=== PATIENT | female | born 1945 | race Caucasian/White ===

== ENCOUNTER 2016-04-03 07:15 | Emergency (ER) | payer MEDICARE ==
[2016-04-03 07:42] VITALS: BP 123/70
--- NOTE | 2016-04-03 08:19 | UC ---
Cardiac HPI - HPI Summary HPI Summary: The patient comes in today for: 1. Right-sided chest pain: Onset: one week ago. Palliative/provocative: Sometimes the pain is gone in certain positions ( sitting, straight up and laying out flat). Deep breath makes the pain worse. Breathing shallowly will help. Quality: Dull. Region: Right side Severity: 0/10 sitting. Moving makes the pain go up to 5/10 Time: Comes and goes. Associated symptoms: She wants to make sure that she does not have pneumoia or anything contagious. FEvers: None. Cancers: Ovarian cancer with metastasis with de-bulking surgery and chemotherapy with remission 2016. Shortness of breath: None. * - History of Current Complaint Chief Complaint: UCRespiratory Stated Complaint: PAINFUL DEEP BREATHING Time Seen by Provider: 04/03/16 08:12 Hx Obtained From: Patient, Family/Sales Lead - Allergy/Home Medications Allergies/Adverse Reactions: Allergies Allergy/AdvReac Type Severity Reaction Status Date / Time No Known Allergies Allergy Verified 04/03/16 07:33 Home Medications: Home Medications Dabigatran CAP(NF) [Pradaxa CAP(NF)] 150 mg PO BID 04/03/16 [History Confirmed 04/03/16] Metoprolol Tartrate TAB* [Lopressor TAB*] 150 mg PO BID 04/03/16 [History Confirmed 04/03/16] Nortriptyline CAP* [Pamelor CAP*] 25 mg PO BEDTIME 04/03/16 [History Confirmed 04/03/16] PMH/Surg Hx/FS Hx/Imm Hx Previously Healthy: No - Ovarian cancer. Endocrine History Of: Reports: Diabetes - She states that she is type II, Off medications at this time. Denies: Thyroid Disease, Hyperthyroidism, Hypothyroidism, Dyslipidemia Cardiovascular History Of: Reports: Cardiac Disorders - A. Fib., Hypertension, Atrial Fibrillation Denies: Pacemaker/ICD, Myocardial Infarction, Congestive Heart Failure, Deep Vein Thrombosis, Bleeding Disorders Respiratory History Of: Denies: COPD, Asthma, Bronchitis, Pneumonia, Pulmonary Embolism GI/ History Of: Denies: Gastroesophageal Reflux, Ulcer, Gastrointestinal Bleed, Gall Bladder Disease, Kidney Stones, Diverticulitis, Renal Disease, Urosepsis Neurological History Of: Denies: TIA, CVA, Dementia, Seizures, Migraine Psychological History Of: Denies: Anxiety, Depression, Bipolar Disorder, Schizophrenia, Post Traumatic Stress Disorder Cancer History Of: Denies: Lung Cancer, Colorectal Cancer, Breast Cancer, Prostate Cancer, Cervical Cancer Other History Of: Anticoagulant Therapy - On Pradaxa. Negative For: HIV, Hepatitis B, Hepatitis C - Surgical History Surgical History: Yes Surgery Procedure, Year, and Place: Hysterectomy, 2014, [place]; Appendectomy, Spleenectomy, Partial Sigmoid Colonectomy, and Omentumectomy, 2014, [place] - Family History Known Family History: Negative: Cardiac Disease, Hypertension - Social History Occupation: Employed Part-time, Retired Alcohol Use: Rare Substance Use Type: None Smoking Status (MU): Former Smoker - Immunization History Most Recent Influenza Vaccination: December 2015 Most Recent Tetanus Shot: OVER 5 YEARS Most Recent Pneumonia Vaccination: 2015 Review of Systems Constitutional: Negative Skin: Negative Eyes: Negative ENT: Negative Respiratory: Negative Cardiovascular: Chest Pain Gastrointestinal: Negative Genitourinary: Negative All Other Systems Reviewed And Are Negative: Yes Physical Exam Triage Information Reviewed: Yes Appearance: Well-Appearing, No Pain Distress, Well-Nourished Vital Signs: Initial Vital Signs Temp 97.9 F 04/03/16 07:30 Pulse 66 04/03/16 07:30 Resp 16 04/03/16 07:30 BP 123/70 04/03/16 07:30 Pulse Ox 100 04/03/16 07:30 Vital Signs Reviewed: Yes Eyes: Positive: Conjunctiva Clear. Negative: Discharge ENT: Positive: Normal ENT inspection, Pharynx normal. Negative: Pharyngeal erythema, Nasal congestion, Nasal drainage, TM bulging, TM dull, TM red, Tonsillar swelling, Tonsillar exudate Dental: Negative: Gross Decay/Caries @, Dental Fracture @ Neck: Positive: Supple, Nontender, No Lymphadenopathy. Negative: Nuchal Rigidity Respiratory: Positive: Chest non-tender, Lungs clear, No respiratory distress, No accessory muscle use. Negative: Crackles, Stridor Cardiovascular: Positive: RRR, No Murmur Abdomen Description: Positive: Nontender, No Organomegaly, Soft, Other: - Patient was a bit difficult to assess. When I pushed on her right upper quadrant , she would grimace, but state that she did not have any pain.. Negative: Guarding Musculoskeletal: Positive: Strength Intact, Other: - She has some tenderness to palpation of her right lower, lateral rib cage, but the patient states that this is not the pain that she is having and states that there is some tenderness along the right anterior lower rib margin. Neurological: Positive: Alert, Muscle Tone Normal Psychological: Positive: Age Appropriate Behavior, Consolable Skin: Negative: rashes, breakdown Diagnostics - Radiology No standard instances Xray Interpretation: Positive (See Comments) - IMPRESSION: Elevated right hemidiaphragm with bibasilar atelectasis. Radiology Interpretation Completed By: Radiologist - Assessment/Plan Course Of Treatment: Patient was told of the elevated right hemidiaphram and and atelectasis. She was told that I did not have a definite cause for her right-sided chest pain and recommended that she go to the ER. She was not interseted in doing that at this time. - Clinical Impression Provider Diagnoses: Chest pain. right atelectasis. Elevation of the right hemidiaphragm. Discharge - Discharge Plan Condition: Stable Disposition: AGAINST MEDICAL ADVICE Patient Education Materials: Atelectasis (ED) Referrals: Cindy Rodarte MD [Primary Care Provider] - As Soon As Possible (If you are not going to the ER for further evaluation, please see your primary care provider as soon as you can. )
--- NOTE | 2016-04-03 08:45 | RAD ---
Indication: Pleuritic chest pain, atrial fibrillation. 2 views of the chest including dual energy PA views demonstrate no mediastinal shift. Heart is of normal size and configuration. Bibasilar atelectasis is noted. No pneumonia is identified. IMPRESSION: Elevated right hemidiaphragm with bibasilar atelectasis.
== END 2016-04-03 09:15 | disposition left against medical advice (07) ==
LOC: UCCORT 07:15
DX: R07.89 Other chest pain (principal); J98.11 Atelectasis; Q79.1 Other congenital malformations of diaphragm; I48.91 Unspecified atrial fibrillation; Z79.01 Long term (current) use of anticoagulants; I10 Essential (primary) hypertension; Z87.891 Personal history of nicotine dependence
CPT/HCPCS: 71020; 99212; G0463

== ENCOUNTER 2017-02-22 09:51 | Emergency (ER) | payer MEDICARE ==
[2017-02-22 11:06] VITALS: BP 156/78
--- NOTE | 2017-02-22 11:35 | UC ---
Respiratory Complaint HPI - HPI Summary HPI Summary: Pt c/o cough, chest congestion, nasal congestion and sinus pressure and pain X 1 week. Pt is currently in treatment for ovarian cancer and had first cycle of chemotherapy in January, due to have cycle 2 on 02/28/17 - History of Current Complaint Chief Complaint: UCRespiratory Stated Complaint: RESPIRATORY Time Seen by Provider: 02/22/17 11:22 Hx Obtained From: Patient Hx Last Menstrual Period: n/a ?: No Onset/Duration: Gradual Onset, Lasting Days, Still Present Timing: Constant Severity Initially: Mild Severity Currently: Mild Character: Cough: Nonproductive Aggravating Factors: Deep Breaths, Recumbent Position Alleviating Factors: Nothing Associated Signs And Symptoms: Positive: URI, Nasal Congestion - Risk Factors Pulmonary Embolism Risk Factors: Malignancy - ovarian cancer Cardiac Risk Factors: Negative Pseudomonas Risk Factors: Negative Tuberculosis Risk Factors: Immune Deficienty - currently beign treated for ovarian cancer - Allergies/Home Medications Allergies/Adverse Reactions: Allergies Allergy/AdvReac Type Severity Reaction Status Date / Time No Known Allergies Allergy Verified 02/22/17 11:00 Home Medications: Home Medications Apixaban* [Eliquis*] 5 mg PO BID 02/22/17 [History Confirmed 02/22/17] Gabapentin CAP(*) [Neurontin 300 CAP(*)] 600 mg PO TID 02/22/17 [History Confirmed 02/22/17] PMH/Surg Hx/FS Hx/Imm Hx Previously Healthy: No - ovarian cancer Other History Of: Anticoagulant Therapy - On Pradaxa. Negative For: HIV, Hepatitis B, Hepatitis C - Surgical History Surgical History: Yes Surgery Procedure, Year, and Place: Hysterectomy, 2014, [place]; Appendectomy, Spleenectomy, Partial Sigmoid Colonectomy, and Omentumectomy, 2014, [facility] - Family History Known Family History: Negative: Cardiac Disease, Hypertension - Social History Occupation: Retired Lives: With Family Alcohol Use: Rare Substance Use Type: None Smoking Status (MU): Former Smoker Type: Cigarettes Length of Time of Smoking/Using Tobacco: Some Day Smoker for 20 Years When Did the Patient Quit Smoking/Using Tobacco: 1992 - Immunization History Most Recent Influenza Vaccination: December 2016 Most Recent Tetanus Shot: OVER 5 YEARS Most Recent Pneumonia Vaccination: 2015 Review of Systems Constitutional: Fatigue Skin: Negative Eyes: Negative ENT: Sinus Congestion, Sinus Pain/Tenderness Respiratory: Cough Cardiovascular: Negative Gastrointestinal: Negative Genitourinary: Negative Motor: Negative Neurovascular: Negative Musculoskeletal: Negative Neurological: Negative Psychological: Negative Is Patient Immunocompromised?: No All Other Systems Reviewed And Are Negative: Yes Physical Exam Triage Information Reviewed: Yes Appearance: Well-Appearing Vital Signs: Initial Vital Signs Temp 98.1 F 02/22/17 10:56 Pulse 76 02/22/17 10:56 Resp 16 02/22/17 10:56 BP 156/78 02/22/17 10:56 Pulse Ox 96 02/22/17 10:56 Vital Signs Reviewed: Yes Eye Exam: Normal ENT: Positive: Nasal congestion, Sinus tenderness Dental Exam: Normal Neck exam: Normal Respiratory Exam: Normal Cardiovascular Exam: Normal Musculoskeletal Exam: Normal Neurological Exam: Normal Psychological Exam: Normal Skin Exam: Normal UC Diagnostic Evaluation - Laboratory O2 Sat by Pulse Oximetry: 96 Respiratory Course/Dx - Differential Dx/Diagnosis Differential Diagnosis/HQI/PQRI: Bronchitis, Pulmonary Embolism, Other - pneumonia Provider Diagnoses: bronchitis Discharge - Discharge Plan Condition: Stable Disposition: HOME Prescriptions: Azithromycin TAB* [Zithromax TAB (Z-NICHOLAS) 250 mg #6 tabs] 2 tab PO .TODAY, THEN 1 DAILY #1 nicholas Benzonatate CAP* [Tessalon 100 MG CAP*] 100 mg PO Q8H PRN #30 cap PRN Reason: Cough Patient Education Materials: Acute Bronchitis (ED) Referrals: Cindy Rodarte MD [Primary Care Provider] - If Needed
== END 2017-02-22 11:41 | disposition home or self-care (01) ==
LOC: UCCORT 09:51
DX: J40 Bronchitis, not specified as acute or chronic (principal)
CPT/HCPCS: 99212; G0463

== ENCOUNTER 2017-10-02 13:36 | Emergency (ER) | payer MEDICARE ==
[2017-10-02 14:09] VITALS: BP 150/73
--- NOTE | 2017-10-02 14:22 | UC ---
Back Pain HPI - HPI Summary HPI Summary: right mid to lower back pain x 3 days no know injury increase pain with movement , better with rest, no dysuria , no fever, chills - History of Current Complaint Chief Complaint: UCBackPain Stated Complaint: BACK PAIN Time Seen by Provider: 10/02/17 13:53 Hx Obtained From: Patient Hx Last Menstrual Period: n/a Onset/Duration: Gradual Onset, Lasting Days - 3, Still Present Timing: Constant Severity Initially: Moderate Severity Currently: Moderate Pain Intensity: 4 Back Pain: Is Discrete @ - right lower back Character: Aching Aggravating Factor(s): Movement, Bending, Cough Alleviating Factor(s): Rest, Heat Associated Signs And Symptoms: Negative: Swelling, Redness, Bruising, Fever, Weakness, Numbness, Tingling, Abdominal Pain, Flank Pain, Bladder Incontinence, Bowel Incontinence, Weight Loss, Pain with Weight Bearing - Allergies/Home Medications Allergies/Adverse Reactions: Allergies Allergy/AdvReac Type Severity Reaction Status Date / Time No Known Allergies Allergy Verified 10/02/17 14:05 Home Medications: Home Medications Rivaroxaban TAB(*) [Xarelto 20 mg] 20 mg PO DAILY 10/02/17 [History Confirmed ] predniSONE TAB* [Deltasone 20 MG TAB*] 40 mg PO DAILY 10/02/17 [History Confirmed 10/02/17] PMH/Surg Hx/FS Hx/Imm Hx Cardiovascular History: Cardiac Disease, Hypertension, Atrial Fibrillation Other History Of: Anticoagulant Therapy - On Pradaxa. Negative For: HIV, Hepatitis B, Hepatitis C - Surgical History Surgical History: Yes Surgery Procedure, Year, and Place: Hysterectomy, 2014, [place]; Appendectomy, Spleenectomy, Partial Sigmoid Colonectomy, and Omentumectomy, 2014, [facility] - Family History Known Family History: Negative: Cardiac Disease, Hypertension - Social History Alcohol Use: Rare Substance Use Type: None Smoking Status (MU): Former Smoker Type: Cigarettes Length of Time of Smoking/Using Tobacco: Some Day Smoker for 20 Years When Did the Patient Quit Smoking/Using Tobacco: 1992 - Immunization History Most Recent Influenza Vaccination: December 2016 Most Recent Tetanus Shot: OVER 5 YEARS Most Recent Pneumonia Vaccination: 2015 Review of Systems Constitutional: Negative Skin: Negative Eyes: Negative ENT: Negative Respiratory: Negative Cardiovascular: Negative Gastrointestinal: Negative Genitourinary: Negative Is Patient Immunocompromised?: No All Other Systems Reviewed And Are Negative: Yes Physical Exam Triage Information Reviewed: Yes Appearance: Well-Appearing, No Pain Distress, Well-Nourished Vital Signs: Initial Vital Signs Temp 98.1 F 10/02/17 14:01 Pulse 66 10/02/17 14:01 Resp 15 10/02/17 14:01 BP 150/73 10/02/17 14:01 Pulse Ox 98 10/02/17 14:01 Vital Signs Reviewed: Yes Eyes: Positive: Conjunctiva Clear ENT Exam: Normal ENT: Positive: Normal ENT inspection, Hearing grossly normal, Pharynx normal Neck exam: Normal Neck: Positive: Supple Respiratory: Positive: Chest non-tender, Lungs clear, Normal breath sounds Cardiovascular: Positive: RRR, No Murmur, Pulses Normal Abdomen Description: Positive: Nontender, Soft. Negative: CVA Tenderness (R), CVA Tenderness (L), Distended, Guarding Bowel Sounds: Positive: Present Musculoskeletal: Positive: Other: - lower back: no swelling, no erythema, no tenderness , good ROM on flexion and extension Skin Exam: Normal Back Pain Course/Dx - Differential Dx/Diagnosis Provider Diagnoses: lower back pain. UTI Discharge - Sign-Out/Discharge Documenting (check all that apply): Patient Departure - Discharge Plan Condition: Stable Disposition: HOME Prescriptions: Nitrofurantoin Monohyd/M-Cryst [Macrobid 100 mg Capsule] 100 mg PO BID #14 cap Patient Education Materials: Urinary Tract Infection in Women (ED), Back Pain ( ED) Referrals: Cindy Rodarte MD [Primary Care Provider] - 7 Days - Billing Disposition and Condition Condition: STABLE Disposition: Home
== END 2017-10-02 14:25 | disposition home or self-care (01) ==
LOC: UCCORT 13:36
DX: M54.5 Low back pain (principal); N39.0 Urinary tract infection, site not specified; I10 Essential (primary) hypertension; I48.91 Unspecified atrial fibrillation; Z79.01 Long term (current) use of anticoagulants; Z87.891 Personal history of nicotine dependence; Z90.710 Acquired absence of both cervix and uterus
CPT/HCPCS: 81003; 87086; 99212; G0463

== ENCOUNTER 2022-02-07 21:41 | Inpatient (IN) ==
[2022-02-07 22:45] LABS: Hematocrit 30 % (35-47); Hemoglobin 9.7 g/dL (12.0-16.0); Mean Corpuscular HGB Conc 32 g/dL (31-36); Mean Corpuscular Hemoglobin 34 pg (27-31); Mean Corpuscular Volume 104 fL (80-97); Mean Platelet Volume 8.6 fL (7.4-10.4); Platelet Count 254 10^3/uL (150-450); Red Cell Distribution Width 19 % (10-15); White Blood Count 19.1 10^3/uL (3.5-10.8)
[2022-02-07 23:16] LABS: High Sens Troponin Baseline 14 pg/mL (<15)
[2022-02-07 23:29] LABS: ALT 54 U/L (7-52); AST 89 U/L (13-39); Albumin 3.3 g/dL (3.2-5.2); Albumin/Globulin Ratio 1.2 (1-3); Alcohol, S < 13 mg/dL (<13); Alkaline Phosphatase 352 U/L (35-149); Anion Gap 10 mmol/L (2-11); Blood Urea Nitrogen 20 mg/dL (6-24); CO2 Carbon Dioxide 30 mmol/L (22-32); Calcium 8.6 mg/dL (8.6-10.3); Chloride 95 mmol/L (101-111); Globulin 2.7 g/dL (2-4); Glucose 297 mg/dL (70-100); Magnesium 1.6 mg/dL (1.9-2.7); Potassium 4.6 mmol/L (3.5-5.0); Sodium 135 mmol/L (135-145)
[2022-02-07 23:39] LABS: ABS Basophils 0.1 10^3/ul (0-0.2); ABS Lymphocytes 1.2 10^3/ul (1.0-4.8); ABS Neutrophils 13.7 10^3/ul (1.5-7.7); Lymphocyte % 6.4 %; Nucleated Red Blood Cells % 0.1
[2022-02-07 23:44] LABS: TSH Ultra Thyroid Stim Horm 0.55 mcIU/mL (0.34-5.60)
[2022-02-08 00:30] LABS: Urine Appearance Cloudy; Urine Bilirubin Negative (Negative); Urine Blood 1+ (Negative); Urine Color Yellow; Urine Glucose 1+(50 mg/dL) (Negative); Urine Ketones Negative (Negative); Urine Nitrite Negative (Negative); Urine Protein 2+(100 mg/dL) (Negative); Urine Specific Gravity 1.023 (1.002-1.030); Urine Urobilinogen Negative (Negative)
[2022-02-08 00:35] LABS: Urine Bacteria 1+ (Absent); Urine Red Blood Cell 3+(>10/hpf) (Absent); Urine Squamous Epithelial Cell Present (Absent); Urine White Blood Cell Trace(0-5/hpf) (Absent)
[2022-02-08 03:12] LABS: C Reactive Protein 331.24 mg/L (<8.01)
[2022-02-08 03:39] LABS: Folate 13.39 ng/mL (5.90-24.80); Vitamin B12 273 pg/mL (180-914)
[2022-02-08] MEDS: cefTRIAXone 1 gm/50 mL D5W 1 GM/50 ML BAG IV SCH (03:52)
[2022-02-08] MEDS ORDERED: Magnesium Sulfate IV 3 GM in NS 0.9% 100 ml BAG 100 ML IVPB ONE (04:29)
[2022-02-08] MEDS ORDERED: Dextrose 50% Syringe 50 ml 25 GM/50 ML SYRINGE IV PUSH PRN (05:51)
[2022-02-08 07:00] LABS: Hematocrit 28 % (35-47); Hemoglobin 9.3 g/dL (12.0-16.0); Mean Corpuscular HGB Conc 33 g/dL (31-36); Mean Corpuscular Hemoglobin 35 pg (27-31); Mean Corpuscular Volume 105 fL (80-97); Mean Platelet Volume 8.8 fL (7.4-10.4); Platelet Count 242 10^3/uL (150-450); Red Blood Count 2.68 10^6 /uL (3.70-4.87); Red Cell Distribution Width 18 % (10-15); White Blood Count 16.8 10^3/uL (3.5-10.8)
[2022-02-08 07:48] LABS: ABS Basophils 0.2 10^3/ul (0-0.2); ABS Lymphocytes 1.9 10^3/ul (1.0-4.8); ABS Monocytes 3.2 10^3/ul (0-0.8); ABS Neutrophils 11.6 10^3/ul (1.5-7.7); Anisocytosis 1+; Eosinophil % 0.1 %; Lymphocyte % 11.2 %; Macrocytosis 1+; Nucleated Red Blood Cells % 0.1; Polychromasia 1+
[2022-02-08 07:52] LABS: Albumin 3.1 g/dL (3.2-5.2); Albumin/Globulin Ratio 1.1 (1-3); Calcium 8.7 mg/dL (8.6-10.3); Globulin 2.7 g/dL (2-4); Potassium 4.8 mmol/L (3.5-5.0); Total Bilirubin 0.5 mg/dL (0.2-1.0); Total Protein 5.8 g/dL (6.4-8.9); eGFR CKD-EPI 58.8 (>60)
[2022-02-08] MEDS ORDERED: NS 0.9% 500 ml BAG 500 ML IV ONE (20:51)
[2022-02-08] MEDS ORDERED: Insulin GLARGINE 100 un/ml 10 ml VIAL SUBCUT SCH (21:00)
[2022-02-09] MEDS: cefTRIAXone 1 gm/50 mL D5W 1 GM/50 ML BAG IV SCH (02:42)
[2022-02-09 06:14] LABS: Hematocrit 28 % (35-47); Hemoglobin 9.1 g/dL (12.0-16.0); Mean Corpuscular HGB Conc 33 g/dL (31-36); Mean Corpuscular Hemoglobin 34 pg (27-31); Mean Corpuscular Volume 103 fL (80-97); Mean Platelet Volume 9.1 fL (7.4-10.4); Platelet Count 219 10^3/uL (150-450); Red Blood Count 2.67 10^6 /uL (3.70-4.87); Red Cell Distribution Width 19 % (10-15)
[2022-02-09 06:23] LABS: ABS Lymphocytes 0.8 10^3/ul (1.0-4.8); ABS Monocytes 2.5 10^3/ul (0-0.8); ABS Neutrophils 10.6 10^3/ul (1.5-7.7); Eosinophil % 0.1 %; Nucleated Red Blood Cells % 0.3
[2022-02-09 06:30] LABS: Calcium 8.2 mg/dL (8.6-10.3); Potassium 4.4 mmol/L (3.5-5.0); eGFR CKD-EPI 39.2 (>60)
[2022-02-09] MEDS ORDERED: Dextrose 50% Syringe 50 ml 25 GM/50 ML SYRINGE IV PUSH PRN (17:05)
[2022-02-09] MEDS ORDERED: Cyanocobalamin INJ 1,000 MCG/ML VIAL 1 ML VIAL IM ONE (17:25)
[2022-02-09 20:28] LABS: Erythrocyte Sed Rate > 120 mm/Hr (0-29)
[2022-02-09] MEDS ORDERED: Gadoteridol (CONTRAST) 279.3 MG/ML 10 ML IV ONE (20:43)
[2022-02-09] MEDS: Insulin GLARGINE 100 un/ml 10 ml VIAL SUBCUT SCH (21:46)
[2022-02-10] MEDS: cefTRIAXone 1 gm/50 mL D5W 1 GM/50 ML BAG IV SCH (04:28)
[2022-02-10 06:20] LABS: Hematocrit 28 % (35-47); Hemoglobin 9.2 g/dL (12.0-16.0); Mean Corpuscular HGB Conc 33 g/dL (31-36); Mean Corpuscular Hemoglobin 34 pg (27-31); Mean Corpuscular Volume 104 fL (80-97); Mean Platelet Volume 8.9 fL (7.4-10.4); Platelet Count 225 10^3/uL (150-450); Red Blood Count 2.71 10^6 /uL (3.70-4.87); Red Cell Distribution Width 19 % (10-15); White Blood Count 11.5 10^3/uL (3.5-10.8)
[2022-02-10 06:24] LABS: ABS Basophils 0.1 10^3/ul (0-0.2); ABS Eosinophils 0.1 10^3/ul (0-0.6); ABS Monocytes 1.8 10^3/ul (0-0.8); ABS Neutrophils 8.6 10^3/ul (1.5-7.7); Eosinophil % 0.5 %; Lymphocyte % 8.9 %; Nucleated Red Blood Cells % 0.4
[2022-02-10 06:58] LABS: Calcium 8.2 mg/dL (8.6-10.3); Potassium 4.4 mmol/L (3.5-5.0); eGFR CKD-EPI 49.2 (>60)
[2022-02-10] MEDS: Insulin GLARGINE 100 un/ml 10 ml VIAL SUBCUT SCH (23:07)
[2022-02-10] MEDS: guaiFENesin DM SUGAR FREE 100 MG/10 MG 5 ML UDC PO SCH (23:42)
[2022-02-11 05:54] LABS: ABS Basophils 0.1 10^3/ul (0-0.2); ABS Lymphocytes 1.3 10^3/ul (1.0-4.8); ABS Monocytes 1.4 10^3/ul (0-0.8); ABS Neutrophils 7.2 10^3/ul (1.5-7.7); Eosinophil % 0.1 %; Hematocrit 29 % (35-47); Hemoglobin 9.7 g/dL (12.0-16.0); Mean Corpuscular HGB Conc 33 g/dL (31-36); Mean Corpuscular Hemoglobin 34 pg (27-31); Mean Corpuscular Volume 103 fL (80-97); Mean Platelet Volume 8.7 fL (7.4-10.4); Nucleated Red Blood Cells % 0.4; Platelet Count 240 10^3/uL (150-450); Red Blood Count 2.85 10^6 /uL (3.70-4.87); Red Cell Distribution Width 19 % (10-15); White Blood Count 9.9 10^3/uL (3.5-10.8)
[2022-02-11 06:30] LABS: Potassium 4.6 mmol/L (3.5-5.0); eGFR CKD-EPI 58.8 (>60)
[2022-02-11] MEDS: guaiFENesin DM SUGAR FREE 100 MG/10 MG 5 ML UDC PO SCH ×2 (09:10→22:14)
[2022-02-11] MEDS: Insulin GLARGINE 100 un/ml 10 ml VIAL SUBCUT SCH (22:15)
[2022-02-12 07:28] LABS: Hematocrit 27 % (35-47); Hemoglobin 8.8 g/dL (12.0-16.0); Mean Corpuscular HGB Conc 33 g/dL (31-36); Mean Corpuscular Hemoglobin 34 pg (27-31); Mean Corpuscular Volume 104 fL (80-97); Platelet Count 259 10^3/uL (150-450); Red Blood Count 2.59 10^6 /uL (3.70-4.87); Red Cell Distribution Width 19 % (10-15); White Blood Count 10.6 10^3/uL (3.5-10.8)
[2022-02-12 08:34] LABS: Calcium 8.7 mg/dL (8.6-10.3); Potassium 4.7 mmol/L (3.5-5.0); eGFR CKD-EPI 66.7 (>60)
[2022-02-12] MEDS: guaiFENesin DM SUGAR FREE 100 MG/10 MG 5 ML UDC PO SCH (08:42)
[2022-02-12 08:46] LABS: ABS Lymphocytes 1.5 10^3/ul (1.0-4.8); ABS Monocytes 1.8 10^3/ul (0-0.8); ABS Neutrophils 7.2 10^3/ul (1.5-7.7); Eosinophil % 0.2 %; Lymphocyte % 14.4 %; Nucleated Red Blood Cells % 0.4
[2022-02-12 11:23] VITALS: BP 125/67
== END 2022-02-12 14:00 | disposition home or self-care (01) | DRG 71 ==
LOC: EDHOLD 21:41 → ED 21:41 → SUATTDRO 02-08 02:18 → EDHOLD 02-08 09:55 → MED 02-08 10:59
PROVIDERS: ADMIT Internal Medicine; ATTEND Student in an Organized Health Care Education/Training Program

== ENCOUNTER 2022-02-16 06:10 | Observation (INO) ==
[2022-02-16 08:14] LABS: Hematocrit 33 % (35-47); Hemoglobin 10.4 g/dL (12.0-16.0); Mean Corpuscular HGB Conc 32 g/dL (31-36); Mean Corpuscular Hemoglobin 33 pg (27-31); Mean Corpuscular Volume 104 fL (80-97); Mean Platelet Volume 8.6 fL (7.4-10.4); Platelet Count 296 10^3/uL (150-450); Red Blood Count 3.13 10^6 /uL (3.70-4.87); Red Cell Distribution Width 19 % (10-15); White Blood Count 15.6 10^3/uL (3.5-10.8)
[2022-02-16 08:38] LABS: INR 1.39 (0.88-1.18)
[2022-02-16 09:08] LABS: Albumin 3.4 g/dL (3.2-5.2); Albumin/Globulin Ratio 1.1 (1-3); Calcium 8.8 mg/dL (8.6-10.3); Magnesium 1.7 mg/dL (1.9-2.7); Potassium 4.7 mmol/L (3.5-5.0); Total Bilirubin 0.7 mg/dL (0.2-1.0); Total Protein 6.4 g/dL (6.4-8.9); eGFR CKD-EPI 60.2 (>60)
[2022-02-16 09:22] LABS: TSH Ultra Thyroid Stim Horm 1.03 mcIU/mL (0.34-5.60)
[2022-02-16 09:39] LABS: High Sensitivity Troponin 1 Hr 8 pg/mL (<15)
[2022-02-16 10:11] LABS: ABS Basophils 0.2 10^3/ul (0-0.2); ABS Lymphocytes 1.2 10^3/ul (1.0-4.8); ABS Monocytes 2.1 10^3/ul (0-0.8); ABS Neutrophils 12.1 10^3/ul (1.5-7.7); ABS Nucleated RBC 0.1 10^3/ul; Eosinophil % 0.1 %; Lymphocyte % 7.9 %; Nucleated Red Blood Cells % 0.3
[2022-02-16 13:18] LABS: Urine Appearance Clear; Urine Bilirubin Negative (Negative); Urine Blood 3+ (Large) (Negative); Urine Color Yellow; Urine Glucose Negative (Negative); Urine Ketones Negative (Negative); Urine Nitrite Negative (Negative); Urine Protein 1+ (30 mg/dL) (Negative); Urine Specific Gravity 1.022 (1.002-1.030); Urine Urobilinogen 0.2 (Negative) (Negative); Urine pH 5.5 (5.0-9.0)
[2022-02-16 13:24] LABS: Urine Bacteria 3+ (Absent); Urine Red Blood Cell 3+(>10/hpf) (Absent); Urine Squamous Epithelial Cell Present (Absent); Urine White Blood Cell 2+(11-20/hpf) (Absent)
[2022-02-16] MEDS: Cholecalciferol (VIT D3) 1,000 unit TAB PO SCH (18:21)
[2022-02-16] MEDS: [UNRECOGNIZED DRUG - OTHER] PO SCH (22:33)
[2022-02-17] MEDS: Cholecalciferol (VIT D3) 1,000 unit TAB PO SCH (09:26)
[2022-02-17] MEDS: [UNRECOGNIZED DRUG - OTHER] PO SCH ×2 (09:27→22:05)
[2022-02-17 12:29] LABS: Hematocrit 29 % (35-47); Hemoglobin 9.4 g/dL (12.0-16.0); Mean Corpuscular HGB Conc 32 g/dL (31-36); Mean Corpuscular Hemoglobin 33 pg (27-31); Mean Corpuscular Volume 102 fL (80-97); Mean Platelet Volume 8.5 fL (7.4-10.4); Platelet Count 288 10^3/uL (150-450); Red Blood Count 2.85 10^6 /uL (3.70-4.87); Red Cell Distribution Width 19 % (10-15); White Blood Count 14.3 10^3/uL (3.5-10.8)
[2022-02-17 12:31] LABS: ABS Basophils 0.1 10^3/ul (0-0.2); ABS Lymphocytes 0.7 10^3/ul (1.0-4.8); ABS Monocytes 1.7 10^3/ul (0-0.8); ABS Neutrophils 11.8 10^3/ul (1.5-7.7); Eosinophil % 0.1 %; Lymphocyte % 4.7 %; Nucleated Red Blood Cells % 0.3
[2022-02-17 13:18] LABS: Albumin 3.2 g/dL (3.2-5.2); Calcium 8.6 mg/dL (8.6-10.3); Potassium 4.6 mmol/L (3.5-5.0); Total Bilirubin 0.4 mg/dL (0.2-1.0)
[2022-02-17 13:24] LABS: Albumin/Globulin Ratio 1.1 (1-3); Globulin 2.9 g/dL (2-4); Total Protein 6.1 g/dL (6.4-8.9)
[2022-02-17 16:35] LABS: C Reactive Protein 297.6 mg/L (<8.01)
[2022-02-17 17:09] LABS: Erythrocyte Sed Rate > 120 mm/Hr (0-29)
[2022-02-18 08:48] LABS: Calcium 8.5 mg/dL (8.6-10.3); Magnesium 2.1 mg/dL (1.9-2.7)
[2022-02-18 08:49] LABS: Potassium 5.4 mmol/L (3.5-5.0)
[2022-02-18 08:54] LABS: eGFR CKD-EPI 59.5 (>60)
[2022-02-18] MEDS: Cholecalciferol (VIT D3) 1,000 unit TAB PO SCH (08:59)
[2022-02-18] MEDS: [UNRECOGNIZED DRUG - OTHER] PO SCH ×2 (09:01→20:50)
[2022-02-18 09:18] LABS: ABS Basophils 0.1 10^3/ul (0-0.2); ABS Neutrophils 10.7 10^3/ul (1.5-7.7); Hematocrit 30 % (35-47); Hemoglobin 9.6 g/dL (12.0-16.0); Lymphocyte % 7.6 %; Mean Corpuscular HGB Conc 32 g/dL (31-36); Mean Corpuscular Hemoglobin 33 pg (27-31); Mean Corpuscular Volume 104 fL (80-97); Mean Platelet Volume 9.6 fL (7.4-10.4); Nucleated Red Blood Cells % 0.2; Platelet Count 251 10^3/uL (150-450); Red Blood Count 2.92 10^6 /uL (3.70-4.87); Red Cell Distribution Width 20 % (10-15); White Blood Count 12.7 10^3/uL (3.5-10.8)
[2022-02-18] MEDS ORDERED: NS 0.9% 500 ml BAG 500 ML IV ONE (11:06)
[2022-02-18] MEDS ORDERED: Dextrose 50% Syringe 50 ml 25 GM/50 ML SYRINGE IV PUSH PRN ×2 (11:52→13:23)
[2022-02-18] MEDS ORDERED: SODIUM ZIRCONIUM CYCLOSILICATE 5 GM PACKET PO ONE (11:59)
[2022-02-18 14:19] LABS: Glucose Confirmatory 420 mg/dL (70-100)
[2022-02-18] MEDS ORDERED: Insulin GLARGINE 100 un/ml 10 ml VIAL SUBCUT SCH (21:00)
[2022-02-19 07:13] LABS: Calcium 8.5 mg/dL (8.6-10.3); Potassium 4.6 mmol/L (3.5-5.0); eGFR CKD-EPI 56.7 (>60)
[2022-02-19 07:19] LABS: ABS Basophils 0.1 10^3/ul (0-0.2); ABS Lymphocytes 1.3 10^3/ul (1.0-4.8); ABS Monocytes 1.4 10^3/ul (0-0.8); ABS Neutrophils 9.8 10^3/ul (1.5-7.7); Eosinophil % 0.1 %; Hematocrit 25 % (35-47); Hemoglobin 8.3 g/dL (12.0-16.0); Lymphocyte % 10.3 %; Mean Corpuscular HGB Conc 34 g/dL (31-36); Mean Corpuscular Hemoglobin 34 pg (27-31); Mean Corpuscular Volume 102 fL (80-97); Mean Platelet Volume 9.7 fL (7.4-10.4); Nucleated Red Blood Cells % 0.2; Platelet Count 259 10^3/uL (150-450); Red Blood Count 2.41 10^6 /uL (3.70-4.87); Red Cell Distribution Width 19 % (10-15); White Blood Count 12.6 10^3/uL (3.5-10.8)
[2022-02-19] MEDS: Cholecalciferol (VIT D3) 1,000 unit TAB PO SCH (08:16)
[2022-02-19] MEDS: [UNRECOGNIZED DRUG - OTHER] PO SCH (08:21)
[2022-02-19 10:00] VITALS: BP 113/62
[2022-02-24 10:10] LABS: Anti-Glial/Neuronal Nuc Ab-1 A Negative titer (<1:240); Anti-Neuronal Nuclear Ab Type1 Negative titer (<1:240); Anti-Neuronal Nuclear Ab Type2 Negative titer (<1:240); Anti-Neuronal Nuclear Ab Type3 Negative titer (<1:240); CRMP-5 IgG Antibody Negative titer (<1:240); Purkinje Cell Cytoplasm Typ Tr Negative titer (<1:240); Purkinje Cell Cytoplasm Type 1 Negative titer (<1:240); Purkinje Cell Cytoplasm Type 2 Negative titer (<1:240)
== END 2022-02-19 12:05 | disposition home or self-care (01) ==
LOC: EDHOLD 06:10 → ED 06:10 → SUATTDRO 14:36 → MEDTELE 20:36
PROVIDERS: ADMIT Hospitalist; ATTEND Internal Medicine

== ENCOUNTER 2022-02-25 10:47 | Inpatient (IN) ==
[2022-02-25 12:10] LABS: Venous Bicarbonate HCO3 29.1 mmol/L (24-28)
[2022-02-25 12:11] LABS: Hematocrit 30 % (35-47); Hemoglobin 9.7 g/dL (12.0-16.0); Mean Corpuscular HGB Conc 32 g/dL (31-36); Mean Corpuscular Hemoglobin 33 pg (27-31); Mean Corpuscular Volume 102 fL (80-97); Mean Platelet Volume 9.2 fL (7.4-10.4); Platelet Count 235 10^3/uL (150-450); Red Blood Count 2.95 10^6 /uL (3.70-4.87); Red Cell Distribution Width 19 % (10-15); White Blood Count 16.7 10^3/uL (3.5-10.8)
[2022-02-25 12:31] LABS: High Sens Troponin Baseline 24 pg/mL (<15)
[2022-02-25 12:53] LABS: ALT 44 U/L (7-52); AST 59 U/L (13-39); Albumin/Globulin Ratio 1.1 (1-3); Alkaline Phosphatase 400 U/L (35-149); Anion Gap 14 mmol/L (2-11); Blood Urea Nitrogen 25 mg/dL (6-24); CO2 Carbon Dioxide 29 mmol/L (22-32); Calcium 8.2 mg/dL (8.6-10.3); Chloride 93 mmol/L (101-111); Globulin 2.7 g/dL (2-4); Glucose 240 mg/dL (70-100); Potassium 4.4 mmol/L (3.5-5.0); Sodium 136 mmol/L (135-145); Total Protein 5.7 g/dL (6.4-8.9); eGFR CKD-EPI 71.4 (>60)
[2022-02-25 13:10] LABS: ABS Basophils 0.2 10^3/ul (0-0.2); ABS Lymphocytes 0.8 10^3/ul (1.0-4.8); ABS Neutrophils 13.7 10^3/ul (1.5-7.7); Lymphocyte % 4.9 %; Nucleated Red Blood Cells % 0.1
[2022-02-25] MEDS ORDERED: Lactated Ringers 1000 ml BAG 1,000 ML IV ONE ×2 (13:39→15:29)
[2022-02-25 13:41] LABS: High Sensitivity Troponin 1 Hr 27 pg/mL (<15)
[2022-02-25] MEDS ORDERED: levETIRAcetam IV 1,500 MG in NS 0.9% 100 ml BAG 100 ML IVPB ONE (15:30)
[2022-02-25 16:09] LABS: Magnesium 1.6 mg/dL (1.9-2.7)
[2022-02-25] MEDS ORDERED: Magnesium Sulfate 2 gm BAG 2 GM/50 ML BAG IVPB ONE (16:20)
[2022-02-25 16:26] LABS: C Reactive Protein 486.06 mg/L (<8.01)
[2022-02-25] MEDS ORDERED: Dextrose 50% Syringe 50 ml 25 GM/50 ML SYRINGE IV PUSH PRN (16:34)
[2022-02-25 17:05] LABS: Total Iron Binding Capacity 220 mcg/dL (250-450); Transferrin 157 mg/dL (203-362)
[2022-02-25 17:06] LABS: % Iron Saturation 9 % (15-55); Iron < 20 ug/dL (50-212); Unsaturated Iron Binding 200 ug/dL
[2022-02-25 17:17] LABS: Erythrocyte Sed Rate > 120 mm/Hr (0-29)
[2022-02-25 18:39] LABS: Thyroid Peroxidase Antibodies 0.35 IU/mL (<9)
[2022-02-26 06:37] LABS: Hematocrit 27 % (35-47); Hemoglobin 8.8 g/dL (12.0-16.0); Mean Corpuscular HGB Conc 33 g/dL (31-36); Mean Corpuscular Hemoglobin 33 pg (27-31); Mean Corpuscular Volume 101 fL (80-97); Mean Platelet Volume 9.7 fL (7.4-10.4); Platelet Count 195 10^3/uL (150-450); Red Blood Count 2.65 10^6 /uL (3.70-4.87); Red Cell Distribution Width 19 % (10-15); White Blood Count 11.8 10^3/uL (3.5-10.8)
[2022-02-26 07:14] LABS: Albumin 2.6 g/dL (3.2-5.2); Globulin 2.5 g/dL (2-4); Potassium 4.1 mmol/L (3.5-5.0); Total Bilirubin 0.8 mg/dL (0.2-1.0); Total Protein 5.1 g/dL (6.4-8.9); eGFR CKD-EPI 76.8 (>60)
[2022-02-26 07:24] LABS: ABS Lymphocytes 0.5 10^3/ul (1.0-4.8); ABS Monocytes 1.6 10^3/ul (0-0.8); ABS Neutrophils 9.6 10^3/ul (1.5-7.7); Eosinophil % 0.1 %; Lymphocyte % 4.3 %; Nucleated Red Blood Cells % 0.3
[2022-02-26] MEDS: Cholecalciferol (VIT D3) 1,000 unit TAB PO SCH (08:53)
[2022-02-26] MEDS ORDERED: methylPREDNISolone SOD 125 mg 250 MG in NS 0.9% 100 ml BAG 100 ML IV ONE (11:00)
[2022-02-27 05:09] LABS: ABS Lymphocytes 0.4 10^3/ul (1.0-4.8); ABS Monocytes 0.8 10^3/ul (0-0.8); ABS Neutrophils 10.2 10^3/ul (1.5-7.7); Eosinophil % 0.1 %; Hematocrit 24 % (35-47); Hemoglobin 8.1 g/dL (12.0-16.0); Lymphocyte % 3.4 %; Mean Corpuscular HGB Conc 34 g/dL (31-36); Mean Corpuscular Hemoglobin 34 pg (27-31); Mean Corpuscular Volume 101 fL (80-97); Mean Platelet Volume 9.3 fL (7.4-10.4); Nucleated Red Blood Cells % 0.3; Platelet Count 186 10^3/uL (150-450); Red Blood Count 2.38 10^6 /uL (3.70-4.87); Red Cell Distribution Width 20 % (10-15); White Blood Count 11.4 10^3/uL (3.5-10.8)
[2022-02-27 06:08] LABS: Calcium 8.2 mg/dL (8.6-10.3); Magnesium 2.1 mg/dL (1.9-2.7); Potassium 4.4 mmol/L (3.5-5.0); eGFR CKD-EPI 67.6 (>60)
[2022-02-27] MEDS: Cholecalciferol (VIT D3) 1,000 unit TAB PO SCH (09:12)
[2022-02-27] MEDS: Enoxaparin 100 MG/ML SYR SUBCUT SCH ×2 (09:14→22:04)
[2022-02-27 21:31] LABS: Urine Appearance Clear; Urine Bilirubin Negative (Negative); Urine Blood 1+ (Small) (Negative); Urine Color Yellow; Urine Glucose Trace (100mg/dL) (Negative); Urine Ketones Negative (Negative); Urine Nitrite Negative (Negative); Urine Protein Negative (Negative); Urine Specific Gravity 1.015 (1.005-1.030); Urine Urobilinogen 0.2 (Negative) (Negative); Urine pH 5.5 (5.0-9.0)
[2022-02-27 21:47] LABS: Urine Bacteria 2+ (Absent); Urine Red Blood Cell 1+(3-5/hpf) (Absent); Urine Squamous Epithelial Cell Present (Absent); Urine White Blood Cell 2+(11-20/hpf) (Absent); Urine Yeast Present (Absent)
[2022-02-28] MEDS: Cholecalciferol (VIT D3) 1,000 unit TAB PO SCH (09:14)
[2022-02-28] MEDS: Enoxaparin 100 MG/ML SYR SUBCUT SCH (09:18)
[2022-02-28] MEDS ORDERED: Benzocaine/Menthol LOZ PO PRN (14:34)
[2022-03-01 06:39] LABS: Hematocrit 24 % (35-47); Mean Corpuscular HGB Conc 34 g/dL (31-36); Mean Corpuscular Hemoglobin 34 pg (27-31); Mean Corpuscular Volume 100 fL (80-97); Mean Platelet Volume 9.7 fL (7.4-10.4); Platelet Count 201 10^3/uL (150-450); Red Blood Count 2.39 10^6 /uL (3.70-4.87); Red Cell Distribution Width 19 % (10-15); White Blood Count 10.4 10^3/uL (3.5-10.8)
[2022-03-01 06:40] LABS: Calcium 8.2 mg/dL (8.6-10.3); eGFR CKD-EPI 62.5 (>60)
[2022-03-01 07:59] LABS: ABS Basophils 0.1 10^3/ul (0-0.2); ABS Lymphocytes 1.9 10^3/ul (1.0-4.8); ABS Monocytes 1.2 10^3/ul (0-0.8); ABS Neutrophils 7.2 10^3/ul (1.5-7.7); Eosinophil % 0.1 %; Lymphocyte % 18.4 %; Nucleated Red Blood Cells % 0.4
[2022-03-01] MEDS: Cholecalciferol (VIT D3) 1,000 unit TAB PO SCH (08:29)
[2022-03-01 10:39] LABS: INR 1.1 (0.88-1.18)
[2022-03-01 10:54] LABS: INR 1.08 (0.88-1.18)
[2022-03-01 12:19] LABS: Body Fluid Source Cerebral Spinal
[2022-03-01 12:41] LABS: CSF Glucose 102 mg/dL (40-70)
[2022-03-01 12:56] LABS: Body Fluid Appearance Clear; Body Fluid Color Colorless; Body Fluid WBC 1 /mcL; CSF Tube # 2
[2022-03-01 13:20] LABS: Body Fluid Mono 57 %; Body Fluid Total Cells Counted 14
[2022-03-02] MEDS ORDERED: Iodixanol (CONTRAST) 320 MG/ML 100 ML SDV IV ONE (03:32)
[2022-03-02 05:59] LABS: Hematocrit 28 % (35-47); Hemoglobin 8.8 g/dL (12.0-16.0); Mean Corpuscular HGB Conc 31 g/dL (31-36); Mean Corpuscular Hemoglobin 32 pg (27-31); Mean Corpuscular Volume 103 fL (80-97); Mean Platelet Volume 9.8 fL (7.4-10.4); Platelet Count 224 10^3/uL (150-450); Red Blood Count 2.72 10^6 /uL (3.70-4.87); Red Cell Distribution Width 20 % (10-15); White Blood Count 10.4 10^3/uL (3.5-10.8)
[2022-03-02 06:07] LABS: ABS Basophils 0.1 10^3/ul (0-0.2); ABS Lymphocytes 1.2 10^3/ul (1.0-4.8); Eosinophil % 0.1 %; Lymphocyte % 11.2 %; Nucleated Red Blood Cells % 0.4
[2022-03-02 06:28] LABS: Albumin 2.7 g/dL (3.2-5.2); Calcium 8.5 mg/dL (8.6-10.3); Globulin 2.6 g/dL (2-4); HDL Cholesterol 38.9 mg/dL; Potassium 4.3 mmol/L (3.5-5.0); Total Bilirubin 0.4 mg/dL (0.2-1.0); Total Protein 5.3 g/dL (6.4-8.9); eGFR CKD-EPI 70.4 (>60)
[2022-03-02 07:08] LABS: Activated Partial Thrombo Time 26.7 seconds (26.0-38.0); INR 1.03 (0.88-1.18)
[2022-03-02] MEDS: Insulin GLARGINE 100 un/ml 10 ml VIAL SUBCUT SCH (08:40)
[2022-03-02] MEDS: Cholecalciferol (VIT D3) 1,000 unit TAB PO SCH (16:09)
[2022-03-02] MEDS: levETIRAcetam IV 1,500 MG in NS 0.9% 100 ml BAG 100 ML IVPB SCH (17:42)
[2022-03-02] MEDS: methylPREDNISolone SOD SUCC 1,000 MG in NS 0.9% 100 ml BAG 100 ML IVPB SCH (19:58)
[2022-03-03 06:05] LABS: ABS Basophils 0.1 10^3/ul (0-0.2); ABS Lymphocytes 0.5 10^3/ul (1.0-4.8); ABS Monocytes 0.7 10^3/ul (0-0.8); ABS Neutrophils 8.9 10^3/ul (1.5-7.7); ABS Nucleated RBC 0.1 10^3/ul; Hematocrit 28 % (35-47); Hemoglobin 9.1 g/dL (12.0-16.0); Lymphocyte % 5.1 %; Mean Corpuscular HGB Conc 33 g/dL (31-36); Mean Corpuscular Hemoglobin 34 pg (27-31); Mean Corpuscular Volume 103 fL (80-97); Mean Platelet Volume 10.1 fL (7.4-10.4); Nucleated Red Blood Cells % 0.5; Platelet Count 208 10^3/uL (150-450); Red Blood Count 2.72 10^6 /uL (3.70-4.87); Red Cell Distribution Width 20 % (10-15); White Blood Count 10.1 10^3/uL (3.5-10.8)
[2022-03-03 06:51] LABS: Magnesium 1.5 mg/dL (1.9-2.7); eGFR CKD-EPI 68.5 (>60)
[2022-03-03] MEDS: levETIRAcetam IV 1,500 MG in NS 0.9% 100 ml BAG 100 ML IVPB SCH ×2 (08:08→20:19)
[2022-03-03] MEDS: methylPREDNISolone SOD SUCC 1,000 MG in NS 0.9% 100 ml BAG 100 ML IVPB SCH ×2 (08:25→20:42)
[2022-03-03] MEDS ORDERED: Magnesium Sulfate IV 3 GM in NS 0.9% 100 ml BAG 100 ML IVPB ONE (08:30)
[2022-03-03] MEDS: Insulin GLARGINE 100 un/ml 10 ml VIAL SUBCUT SCH (08:31)
[2022-03-03] MEDS ORDERED: Vancomycin per Pharmacy 1 EA NOTE FOLLOW UP SCH (09:00)
[2022-03-03] MEDS ORDERED: NS 0.9% 1000 ml BAG 1,000 ML IV SCH (09:00)
[2022-03-03] MEDS: Pantoprazole VIAL 40 MG VIAL IV SCH (09:15)
[2022-03-03] MEDS ORDERED: Vancomycin 1,250 MG in NS 0.9% 250 ml 250 ML IVPB ONE (10:15)
[2022-03-03] MEDS: Cholecalciferol (VIT D3) 1,000 unit TAB PO SCH (10:16)
[2022-03-03] MEDS: Sulfamethox/Trimethoprim DS TAB 800/160 mg PO SCH ×3 (10:17→20:43)
[2022-03-03 14:51] LABS: CSF Oligoclonal Bands 4 bands; Oligoclonal Proteins Interpret 1 bands (<2); Serum Oligoclonal Bands 3 bands
[2022-03-03] MEDS ORDERED: Valproic Acid IV 1,000 MG in NS 0.9% 100 ml BAG 100 ML IVPB ONE (16:50)
[2022-03-03] MEDS: Vancomycin 1,250 MG in NS 0.9% 250 ml 250 ML IVPB SCH (22:08)
[2022-03-04 05:32] LABS: ABS Basophils 0.1 10^3/ul (0-0.2); ABS Lymphocytes 0.7 10^3/ul (1.0-4.8); ABS Monocytes 0.5 10^3/ul (0-0.8); ABS Neutrophils 9.2 10^3/ul (1.5-7.7); ABS Nucleated RBC 0.1 10^3/ul; Hematocrit 23 % (35-47); Hemoglobin 7.3 g/dL (12.0-16.0); Lymphocyte % 6.8 %; Mean Corpuscular HGB Conc 32 g/dL (31-36); Mean Corpuscular Hemoglobin 33 pg (27-31); Mean Corpuscular Volume 103 fL (80-97); Mean Platelet Volume 9.9 fL (7.4-10.4); Nucleated Red Blood Cells % 0.8; Platelet Count 184 10^3/uL (150-450); Red Blood Count 2.24 10^6 /uL (3.70-4.87); Red Cell Distribution Width 20 % (10-15); White Blood Count 10.5 10^3/uL (3.5-10.8)
[2022-03-04 05:42] LABS: Calcium 7.8 mg/dL (8.6-10.3); Magnesium 1.9 mg/dL (1.9-2.7); Potassium 4.5 mmol/L (3.5-5.0)
[2022-03-04 05:47] LABS: eGFR CKD-EPI 61.7 (>60)
[2022-03-04] MEDS ORDERED: NS 0.45% 1000 ml BAG 1,000 ML IV SCH ×2 (08:00→08:56)
[2022-03-04] MEDS: Sulfamethox/Trimethoprim DS TAB 800/160 mg PO SCH ×2 (08:52→21:37)
[2022-03-04] MEDS: Pantoprazole VIAL 40 MG VIAL IV SCH (08:52)
[2022-03-04] MEDS: Cholecalciferol (VIT D3) 1,000 unit TAB PO SCH (08:53)
[2022-03-04] MEDS: methylPREDNISolone SOD SUCC 1,000 MG in NS 0.9% 100 ml BAG 100 ML IVPB SCH ×2 (08:55→21:16)
[2022-03-04] MEDS: Insulin GLARGINE 100 un/ml 10 ml VIAL SUBCUT SCH (08:55)
[2022-03-04] MEDS: levETIRAcetam IV 1,500 MG in NS 0.9% 100 ml BAG 100 ML IVPB SCH ×2 (08:55→20:48)
[2022-03-04] MEDS: Vancomycin 1,250 MG in NS 0.9% 250 ml 250 ML IVPB SCH ×2 (12:11→22:44)
[2022-03-04 14:52] LABS: Hematocrit 24 % (35-47); Hemoglobin 7.6 g/dL (12.0-16.0); Mean Corpuscular HGB Conc 32 g/dL (31-36); Mean Corpuscular Hemoglobin 33 pg (27-31); Mean Corpuscular Volume 103 fL (80-97); Mean Platelet Volume 9.5 fL (7.4-10.4); Platelet Count 178 10^3/uL (150-450); Red Blood Count 2.33 10^6 /uL (3.70-4.87); Red Cell Distribution Width 20 % (10-15); White Blood Count 10.5 10^3/uL (3.5-10.8)
[2022-03-04 15:46] LABS: ABS Lymphocytes 0.3 10^3/ul (1.0-4.8); ABS Monocytes 0.8 10^3/ul (0-0.8); ABS Neutrophils 9.3 10^3/ul (1.5-7.7); ABS Nucleated RBC 0.1 10^3/ul; Lymphocyte % 3.2 %; Nucleated Red Blood Cells % 0.9
[2022-03-04 15:47] LABS: Calcium 7.6 mg/dL (8.6-10.3); Potassium 3.8 mmol/L (3.5-5.0); eGFR CKD-EPI 58.8 (>60)
[2022-03-05 05:03] LABS: ABS Lymphocytes 0.4 10^3/ul (1.0-4.8); ABS Monocytes 0.6 10^3/ul (0-0.8); ABS Neutrophils 8.5 10^3/ul (1.5-7.7); ABS Nucleated RBC 0.1 10^3/ul; Hematocrit 23 % (35-47); Hemoglobin 7.6 g/dL (12.0-16.0); Mean Corpuscular HGB Conc 33 g/dL (31-36); Mean Corpuscular Hemoglobin 34 pg (27-31); Mean Corpuscular Volume 102 fL (80-97); Nucleated Red Blood Cells % 0.9; Platelet Count 175 10^3/uL (150-450); Red Blood Count 2.26 10^6 /uL (3.70-4.87); Red Cell Distribution Width 21 % (10-15); White Blood Count 9.5 10^3/uL (3.5-10.8)
[2022-03-05 05:23] LABS: Calcium 7.8 mg/dL (8.6-10.3); Magnesium 1.7 mg/dL (1.9-2.7); Potassium 3.9 mmol/L (3.5-5.0); eGFR CKD-EPI 66.7 (>60)
[2022-03-05] MEDS ORDERED: Magnesium Sulfate IV 3 GM in NS 0.9% 100 ml BAG 100 ML IVPB ONE (07:16)
[2022-03-05] MEDS: Pantoprazole VIAL 40 MG VIAL IV SCH (09:59)
[2022-03-05] MEDS: Sulfamethox/Trimethoprim DS TAB 800/160 mg PO SCH ×2 (10:00→21:47)
[2022-03-05] MEDS: Insulin GLARGINE 100 un/ml 10 ml VIAL SUBCUT SCH (10:00)
[2022-03-05] MEDS: Cholecalciferol (VIT D3) 1,000 unit TAB PO SCH (10:01)
[2022-03-05] MEDS ORDERED: Vancomycin Trough Check NOTE FOLLOW UP ONE (10:30)
[2022-03-05] MEDS: levETIRAcetam IV 1,500 MG in NS 0.9% 100 ml BAG 100 ML IVPB SCH ×2 (10:30→21:47)
[2022-03-05] MEDS: methylPREDNISolone SOD SUCC 1,000 MG in NS 0.9% 100 ml BAG 100 ML IVPB SCH (11:11)
[2022-03-05] MEDS: Vancomycin 1,250 MG in NS 0.9% 250 ml 250 ML IVPB SCH (12:38)
[2022-03-06 06:12] LABS: ABS Lymphocytes 0.2 10^3/ul (1.0-4.8); ABS Neutrophils 7.9 10^3/ul (1.5-7.7); ABS Nucleated RBC 0.1 10^3/ul; Hematocrit 24 % (35-47); Hemoglobin 7.5 g/dL (12.0-16.0); Lymphocyte % 2.1 %; Mean Corpuscular HGB Conc 31 g/dL (31-36); Mean Corpuscular Hemoglobin 33 pg (27-31); Mean Corpuscular Volume 103 fL (80-97); Mean Platelet Volume 10.7 fL (7.4-10.4); Nucleated Red Blood Cells % 0.9; Platelet Count 162 10^3/uL (150-450); Red Cell Distribution Width 20 % (10-15); White Blood Count 9.1 10^3/uL (3.5-10.8)
[2022-03-06 06:57] LABS: Blood Urea Nitrogen 39 mg/dL (6-24); CO2 Carbon Dioxide 25 mmol/L (22-32); Calcium 7.4 mg/dL (8.6-10.3); Chloride 105 mmol/L (101-111); Glucose 108 mg/dL (70-100); Magnesium 2.2 mg/dL (1.9-2.7); Sodium 142 mmol/L (135-145); eGFR CKD-EPI 52.4 (>60)
[2022-03-06 07:02] LABS: Anion Gap 12 mmol/L (2-11)
[2022-03-06] MEDS: Cholecalciferol (VIT D3) 1,000 unit TAB PO SCH (09:45)
[2022-03-06] MEDS: levETIRAcetam IV 1,500 MG in NS 0.9% 100 ml BAG 100 ML IVPB SCH ×2 (09:50→21:37)
[2022-03-06] MEDS: Pantoprazole VIAL 40 MG VIAL IV SCH (09:50)
[2022-03-06] MEDS: Insulin GLARGINE 100 un/ml 10 ml VIAL SUBCUT SCH (09:50)
[2022-03-06] MEDS ORDERED: Gadoteridol (CONTRAST) 279.3 MG/ML 10 ML IV ONE (16:12)
[2022-03-07 06:22] LABS: Magnesium 1.9 mg/dL (1.9-2.7); Potassium 4.2 mmol/L (3.5-5.0)
[2022-03-07 06:28] LABS: eGFR CKD-EPI 61.7 (>60)
[2022-03-07] MEDS ORDERED: Insulin GLARGINE 100 un/ml 10 ml VIAL SUBCUT SCH (09:00)
[2022-03-07] MEDS: levETIRAcetam IV 1,500 MG in NS 0.9% 100 ml BAG 100 ML IVPB SCH ×2 (10:59→22:15)
[2022-03-07] MEDS: Cholecalciferol (VIT D3) 1,000 unit TAB PO SCH (11:00)
[2022-03-07] MEDS: Pantoprazole VIAL 40 MG VIAL IV SCH (11:06)
[2022-03-07 14:03] LABS: Albumin 2.5 g/dL (3.2-5.2); Direct Bilirubin 0.1 mg/dL (0.03-0.18); Indirect Bilirubin 0.3 mg/dL (0.3-1.0); Total Bilirubin 0.4 mg/dL (0.2-1.0)
[2022-03-07 14:09] LABS: Albumin/Globulin Ratio 1.2 (1-3); Globulin 2.1 g/dL (2-4); Total Protein 4.6 g/dL (6.4-8.9)
[2022-03-07] MEDS ORDERED: Lactated Ringers 1000 ml BAG 1,000 ML IV ONE (17:45)
[2022-03-08 04:34] LABS: Hematocrit 27 % (35-47); Hemoglobin 8.3 g/dL (12.0-16.0); Mean Corpuscular HGB Conc 31 g/dL (31-36); Mean Corpuscular Hemoglobin 32 pg (27-31); Mean Corpuscular Volume 102 fL (80-97); Mean Platelet Volume 10.2 fL (7.4-10.4); Platelet Count 149 10^3/uL (150-450); Red Cell Distribution Width 20 % (10-15); White Blood Count 10.9 10^3/uL (3.5-10.8)
[2022-03-08 04:39] LABS: Urine Appearance Clear; Urine Bilirubin Negative (Negative); Urine Blood 1+ (Negative); Urine Color Yellow; Urine Glucose Negative (Negative); Urine Ketones Negative (Negative); Urine Nitrite Negative (Negative); Urine Protein Negative (Negative); Urine Specific Gravity 1.013 (1.002-1.030); Urine Urobilinogen Negative (Negative)
[2022-03-08 04:41] LABS: Urine Bacteria Absent (Absent); Urine Red Blood Cell 2+(6-10/hpf) (Absent); Urine White Blood Cell Trace(0-5/hpf) (Absent)
[2022-03-08 05:05] LABS: Calcium 7.9 mg/dL (8.6-10.3); Magnesium 1.5 mg/dL (1.9-2.7); Potassium 4.5 mmol/L (3.5-5.0)
[2022-03-08 05:11] LABS: eGFR CKD-EPI 80.4 (>60)
[2022-03-08] MEDS ORDERED: Magnesium Sulf 4 GM/100 ML IV 4,000 MG/100 ML BAG IVPB ONE (05:14)
[2022-03-08 07:47] LABS: PCO2 Arterial 46 mmHg (35-45); PO2 Arterial 99 mmHg (80-100)
[2022-03-08] MEDS ORDERED: Succinylcholine 200 mg VIAL 20 mg/ml 10 ml VIAL (200 mg) ONE (08:02)
[2022-03-08] MEDS ORDERED: Lactated Ringers 1000 ml BAG 1,000 ML IV ONE (10:18)
[2022-03-08] MEDS: levETIRAcetam IV 1,500 MG in NS 0.9% 100 ml BAG 100 ML IVPB SCH (10:29)
[2022-03-08] MEDS: Cholecalciferol (VIT D3) 1,000 unit TAB FEED TUBE SCH (11:00)
[2022-03-08] MEDS: Pantoprazole VIAL 40 MG VIAL IV SCH (12:04)
[2022-03-08 13:49] LABS: Urine Appearance Clear; Urine Bilirubin Negative (Negative); Urine Blood 2+ (Negative); Urine Color Yellow; Urine Glucose Negative (Negative); Urine Ketones Negative (Negative); Urine Nitrite Negative (Negative); Urine Protein Negative (Negative); Urine Specific Gravity 1.015 (1.002-1.030); Urine Urobilinogen Negative (Negative)
[2022-03-08 13:55] LABS: Urine Bacteria Absent (Absent); Urine Red Blood Cell 2+(6-10/hpf) (Absent); Urine Squamous Epithelial Cell Present (Absent); Urine White Blood Cell Trace(0-5/hpf) (Absent)
[2022-03-08] MEDS ORDERED: Lidocaine 1% MPF 5 ML VIAL INJ ONE (14:00)
[2022-03-08 15:05] LABS: Body Fluid Source Cerebral Spinal
[2022-03-08 15:37] LABS: Body Fluid Appearance Clear; Body Fluid Color Colorless; CSF Tube # 4
[2022-03-08 16:09] LABS: Body Fluid WBC 3 /mcL
[2022-03-08 16:26] LABS: CSF Glucose 89 mg/dL (40-70)
[2022-03-08 17:21] LABS: Body Fluid Mono 90 %; Body Fluid Total Cells Counted 71
[2022-03-08] MEDS ORDERED: levETIRAcetam IV 1,000 MG in NS 0.9% 100 ml BAG 100 ML IVPB SCH (21:00)
[2022-03-08] MEDS: Lactated Ringers 1000 ml BAG 1,000 ML IV SCH (21:21)
[2022-03-08] MEDS: levETIRAcetam 1000MG IVPREMIX 1,000 MG/100 ML BAG IVPB SCH (22:02)
[2022-03-09 05:27] LABS: Hematocrit 27 % (35-47); Hemoglobin 8.6 g/dL (12.0-16.0); Mean Corpuscular HGB Conc 32 g/dL (31-36); Mean Corpuscular Hemoglobin 32 pg (27-31); Mean Corpuscular Volume 102 fL (80-97); Mean Platelet Volume 10.2 fL (7.4-10.4); Platelet Count 135 10^3/uL (150-450); Red Blood Count 2.66 10^6 /uL (3.70-4.87); Red Cell Distribution Width 21 % (10-15); White Blood Count 13.3 10^3/uL (3.5-10.8)
[2022-03-09 05:57] LABS: Calcium 7.9 mg/dL (8.6-10.3); Magnesium 2.1 mg/dL (1.9-2.7); eGFR CKD-EPI 87.1 (>60)
[2022-03-09 06:11] LABS: ABS Basophils 0.2 10^3/ul (0-0.2); ABS Lymphocytes 0.3 10^3/ul (1.0-4.8); ABS Neutrophils 11.9 10^3/ul (1.5-7.7); ABS Nucleated RBC 0.1 10^3/ul; Lymphocyte % 2.2 %; Nucleated Red Blood Cells % 0.4
[2022-03-09] MEDS: Lactated Ringers 1000 ml BAG 1,000 ML IV SCH ×2 (06:22→12:28)
[2022-03-09] MEDS: Pantoprazole VIAL 40 MG VIAL IV SCH (08:36)
[2022-03-09] MEDS: levETIRAcetam 1000MG IVPREMIX 1,000 MG/100 ML BAG IVPB SCH ×2 (08:39→20:57)
[2022-03-09] MEDS: Cholecalciferol (VIT D3) 1,000 unit TAB FEED TUBE SCH (08:43)
[2022-03-09] MEDS ORDERED: Succinylcholine 200 mg VIAL 20 mg/ml 10 ml VIAL (200 mg) ONE (10:09)
[2022-03-09] MEDS: Propofol 10 mg/ml 100 ML BTL 1,000 MG/100 ML BTL IV SCH (10:41)
[2022-03-09] MEDS ORDERED: Propofol 10 mg/ml 100 ML BTL 1,000 MG/100 ML BTL ONE (10:44)
[2022-03-09] MEDS ORDERED: Acetylcysteine INH SOL (RT) 200 MG/ML 4 ML VIAL INH ONE (10:54)
[2022-03-09] MEDS ORDERED: Lactated Ringers 1000 ml BAG 1,000 ML IV ONE (11:40)
[2022-03-09] MEDS ORDERED: Acetylcysteine INHALATION SOL 200 MG/ML NEB.SOLN 10 ML INH SCH (13:00)
[2022-03-09] MEDS ORDERED: Propofol 10 mg/ml 100 ML BTL 100 ML IV SCH (13:00)
[2022-03-09] MEDS: Lactulose 30 ml UDC NG TUBE SCH ×3 (15:10→20:58)
[2022-03-09] MEDS: Chlorhexidine MOUTHWASH 0.12% 15 ML UDC TOPICAL SCH ×2 (17:38→20:58)
[2022-03-09 18:16] LABS: Anti-Glial/Neuronal Nuc Ab-1 A Negative titer (<1:240); Anti-Neuronal Nuclear Ab Type1 Negative titer (<1:240); Anti-Neuronal Nuclear Ab Type2 Negative titer (<1:240); Anti-Neuronal Nuclear Ab Type3 Negative titer (<1:240); CRMP-5 IgG Antibody Negative titer (<1:240); Purkinje Cell Cytoplasm Typ Tr Negative titer (<1:240); Purkinje Cell Cytoplasm Type 1 Negative titer (<1:240); Purkinje Cell Cytoplasm Type 2 Negative titer (<1:240)
[2022-03-09] MEDS: Azithromycin 500 mg/250 ml NS 500 MG/250 ML BAG IVPB SCH (18:25)
[2022-03-09] MEDS: cefTRIAXone 1 gm/50 mL D5W 1 GM/50 ML BAG IV SCH (18:29)
[2022-03-09] MEDS ORDERED: Furosemide 20 mg/2 ml IV VIAL IV ONE (20:42)
[2022-03-10] MEDS: Lactated Ringers 1000 ml BAG 1,000 ML IV SCH ×3 (00:02→20:12)
[2022-03-10] MEDS: Chlorhexidine MOUTHWASH 0.12% 15 ML UDC TOPICAL SCH ×6 (00:03→22:23)
[2022-03-10] MEDS: Propofol 10 mg/ml 100 ML BTL 1,000 MG/100 ML BTL IV SCH ×3 (03:29→17:18)
[2022-03-10 06:30] LABS: ABS Lymphocytes 0.2 10^3/ul (1.0-4.8); ABS Monocytes 0.6 10^3/ul (0-0.8); ABS Neutrophils 6.1 10^3/ul (1.5-7.7); ABS Nucleated RBC 0.1 10^3/ul; Hematocrit 27 % (35-47); Hemoglobin 8.7 g/dL (12.0-16.0); Lymphocyte % 3.3 %; Mean Corpuscular HGB Conc 32 g/dL (31-36); Mean Corpuscular Hemoglobin 32 pg (27-31); Mean Corpuscular Volume 103 fL (80-97); Mean Platelet Volume 11.5 fL (7.4-10.4); Nucleated Red Blood Cells % 1.6; Platelet Count 134 10^3/uL (150-450); Red Blood Count 2.67 10^6 /uL (3.70-4.87); Red Cell Distribution Width 21 % (10-15)
[2022-03-10 07:16] LABS: Calcium 7.8 mg/dL (8.6-10.3); Potassium 4.1 mmol/L (3.5-5.0); eGFR CKD-EPI 46.7 (>60)
[2022-03-10] MEDS: Pantoprazole VIAL 40 MG VIAL IV SCH (07:53)
[2022-03-10] MEDS: Cholecalciferol (VIT D3) 1,000 unit TAB FEED TUBE SCH (07:53)
[2022-03-10] MEDS: Lactulose 30 ml UDC NG TUBE SCH ×3 (07:53→16:28)
[2022-03-10] MEDS: levETIRAcetam 1000MG IVPREMIX 1,000 MG/100 ML BAG IVPB SCH ×2 (07:54→22:27)
[2022-03-10] MEDS ORDERED: Acetylcysteine INHALATION SOL 200 MG/ML NEB.SOLN 10 ML INH ONE (12:19)
[2022-03-10] MEDS ORDERED: Propofol 10 MG/ML 20 ML BTL IV PUSH ONE (13:21)
[2022-03-10] MEDS ORDERED: Propofol 10 MG/ML 20 ML BTL ONE (13:21)
[2022-03-10] MEDS: Polyethylene Glycol 3350 17 GM PACKET PO SCH (13:36)
[2022-03-10 14:39] LABS: HSV 1 PCR, CSF Negative (Negative); HSV 2 PCR, CSF Negative (Negative)
[2022-03-10] MEDS: cefTRIAXone 1 gm/50 mL D5W 1 GM/50 ML BAG IV SCH (16:28)
[2022-03-10] MEDS ORDERED: Piperacillin/Tazobac ADVAN 3.375 GM in NS 0.9% 100 ml BAG 100 ML IV ONE (16:53)
[2022-03-10] MEDS ORDERED: Zosyn per Pharmacy NOTE FOLLOW UP SCH (17:00)
[2022-03-10] MEDS: Azithromycin 500 mg/250 ml NS 500 MG/250 ML BAG IVPB SCH (17:11)
[2022-03-10] MEDS ORDERED: Insulin GLARGINE 100 un/ml 10 ml VIAL SUBCUT SCH (21:00)
[2022-03-10] MEDS: ZOSYN 3.375 GM Q8H per EXTENDED INFUSION IV SCH (23:22)
[2022-03-11] MEDS: Chlorhexidine MOUTHWASH 0.12% 15 ML UDC TOPICAL SCH ×4 (00:55→11:48)
[2022-03-11] MEDS: ZOSYN 3.375 GM Q8H per EXTENDED INFUSION IV SCH (05:45)
[2022-03-11 06:09] LABS: Hematocrit 25 % (35-47); Hemoglobin 7.6 g/dL (12.0-16.0); Mean Corpuscular HGB Conc 31 g/dL (31-36); Mean Corpuscular Hemoglobin 32 pg (27-31); Mean Corpuscular Volume 103 fL (80-97); Mean Platelet Volume 11.3 fL (7.4-10.4); Platelet Count 114 10^3/uL (150-450); Red Blood Count 2.37 10^6 /uL (3.70-4.87); Red Cell Distribution Width 21 % (10-15); White Blood Count 6.5 10^3/uL (3.5-10.8)
[2022-03-11 06:52] LABS: ABS Lymphocytes 0.4 10^3/ul (1.0-4.8); ABS Monocytes 0.6 10^3/ul (0-0.8); ABS Neutrophils 5.4 10^3/ul (1.5-7.7); ABS Nucleated RBC 0.1 10^3/ul; Eosinophil % 0.2 %; Lymphocyte % 6.1 %; Nucleated Red Blood Cells % 2.1
[2022-03-11 06:54] LABS: Calcium 7.7 mg/dL (8.6-10.3); Magnesium 2.2 mg/dL (1.9-2.7); Potassium 3.6 mmol/L (3.5-5.0); eGFR CKD-EPI 28.1 (>60)
[2022-03-11 07:45] LABS: Phosphorus 3.8 mg/dL (2.5-5.0)
[2022-03-11] MEDS: Cholecalciferol (VIT D3) 1,000 unit TAB FEED TUBE SCH (07:53)
[2022-03-11] MEDS: Polyethylene Glycol 3350 17 GM PACKET PO SCH (07:56)
[2022-03-11] MEDS: Pantoprazole VIAL 40 MG VIAL IV SCH (07:56)
[2022-03-11] MEDS: Lactated Ringers 1000 ml BAG 1,000 ML IV SCH (07:57)
[2022-03-11] MEDS: levETIRAcetam 1000MG IVPREMIX 1,000 MG/100 ML BAG IVPB SCH ×2 (08:42→20:36)
[2022-03-11] MEDS ORDERED: Furosemide 40 mg/4 ml IV VIAL IV SLOW PU ONE (09:03)
[2022-03-11] MEDS: KCL 20 MEQ/100 ML IVPREMIX 20 MEQ/100 ML BAG IV SCH ×2 (09:15→11:37)
[2022-03-11] MEDS ORDERED: LORazepam 2 mg VIAL 1 ml IV PUSH PRN (12:52)
[2022-03-11] MEDS ORDERED: Atropine 1% (ORAL/SL) 15 ML BTL SL PRN (12:52)
[2022-03-11] MEDS ORDERED: Ondansetron 4 mg VIAL 2 MG/ML 2 ml VIAL IV PRN (12:52)
[2022-03-11] MEDS ORDERED: Lorazepam PYXIS KEY PRN (13:12)
[2022-03-11] MEDS: Morphine 2 MG/ML SYRINGE IV PRN ×4 (14:19→23:02)
[2022-03-11 17:48] VITALS: BP 110/74
[2022-03-12] MEDS: Morphine 2 MG/ML SYRINGE IV PRN ×3 (02:01→08:53)
[2022-03-12] MEDS: levETIRAcetam 1000MG IVPREMIX 1,000 MG/100 ML BAG IVPB SCH (08:53)
[2022-03-12] MEDS: Pantoprazole VIAL 40 MG VIAL IV SCH (08:53)
[2022-03-12] MEDS ORDERED: Propofol 10 MG/ML 20 ML BTL ONE (10:32)
[2022-03-12] MEDS ORDERED: Etomidate 40 mg/20 ml (2 MG/ML) 20 ml VIAL (40 mg) ONE (10:32)
== END 2022-03-12 17:45 | disposition expired | DRG 981 ==
LOC: ED 10:47 → EDHOLD 15:11 → SUATTDRO 15:11 → MEDTELE 19:51 → ICU 03-07 12:53 → MED 03-11 17:23
PROVIDERS: ADMIT Hospitalist; ATTEND Internal Medicine